=== PATIENT | male | born 1995 | race Two or more races ===

== ENCOUNTER 2021-06-15 14:49 | Emergency (ER) | payer OTHER ==
[~2021-06-15] VITALS: Ht 185.4 cm; Wt 93.0 kg
--- NOTE | 2021-06-15 15:07 | NUR ---
DR NINA AT THE BEDSIDE
--- NOTE | 2021-06-15 15:08 | NUR ---
BIBS FOR C/O L CHEST AREA PAIN 07/04, PAIN TAKING DEEP BREATHS X 1 WEEK. SEEN AT URGENT CARE, FINISHED AMOXICILLIN/ PREDNISONE LAST WEEK. IN ROOM AIR AND DENIES SOB. RESPIRATION REGULAR AND UNLABORED. ATTACHED TO THE MONITOR. WILL CONTINUE TO MONITOR THE PATIENT.
[2021-06-15] MEDS ORDERED: KETOROLAC TROMETHAMINE INJ 30 MG/ML VIAL ONE (15:11)
[2021-06-15] MEDS: KETOROLAC TROMETHAMINE INJ 30 MG/ML VIAL IM ONE (15:15)
--- NOTE | 2021-06-15 15:16 | NUR ---
FLYING INSTRUCTOR AT THE BEDSIDE
[2021-06-15] MEDS ORDERED: IBUP-1957 PO (15:59)
[2021-06-15 16:05] VITALS: BP 133/76
--- NOTE | 2021-06-15 16:05 | NUR ---
Patient discharged to home in stable condition. Written and verbal after care instructions given. Patient verbalizes understanding of instruction.
== END 2021-06-15 16:05 | disposition home or self-care (01) ==
LOC: ER 14:54
DX: R09.1 Pleurisy (principal)
CPT/HCPCS: 71045; 93005; 96372; 99283; J1885

== ENCOUNTER 2023-02-07 16:56 | Emergency (ER) | payer OTHER ==
[~2023-02-07] VITALS: Ht 182.9 cm; Wt 97.5 kg
[~2023-02-07 16:56] MED LIST: IBUP-1957 PO
[2023-02-07 17:13] VITALS: TEMP 98.1
[2023-02-07] MEDS ORDERED: MORPHINE SULFATE INJ 2 MG/ML DISP.SYRIN IV ONE (18:00)
[2023-02-07] MEDS ORDERED: IV NS 0.9% 1,000 ML BAG IV ONE (18:00)
[2023-02-07] MEDS ORDERED: ONDANSETRON HCL/PF 4 MG/2 ML VIAL IVP ONE (18:00)
[2023-02-07] MEDS ORDERED: MORPHINE SULFATE INJ 2 MG/ML DISP.SYRIN ONE (18:10)
[2023-02-07 18:11] LABS: BASOPHILS % (AUTO) 0.8 % (0.0-2.0); EOSINOPHILS # (AUTO) 0.1 K/uL (0.0-0.7); EOSINOPHILS % (AUTO) 1.9 % (0.0-6.0); HEMATOCRIT 47 % (39-51); LYMPHOCYTES # (AUTO) 1.5 K/uL (0.8-4.8); LYMPHOCYTES % (AUTO) 25.9 % (20.0-44.0); MEAN CORPUSCULAR HEMOGLOBIN 30 PG (26.0-33.0); MEAN CORPUSCULAR HGB CONC 34 g/dl (31.0-36.0); MEAN CORPUSCULAR VOLUME 88 fL (80-96); MONOCYTES # (AUTO) 0.3 K/uL (0.1-1.30); MONOCYTES % (AUTO) 5.9 % (2.0-12.0); NEUTROPHILS # (AUTO) 3.7 K/uL (1.8-8.9); NEUTROPHILS % (AUTO) 65.5 % (43.0-81.0); PLATELET COUNT (AUTO) 125 K/uL (150-450); RED BLOOD CELL COUNT(AUTO) 5.35 MIL/uL (4.5-6.0); WHITE BLOOD COUNT (AUTO) 5.7 K/uL (4.3-11.0)
[2023-02-07 18:22] LABS: CALCIUM, SERUM 9.2 mg/dL (8.5-10.1); CARBON DIOXIDE 27 mmol/L (21-32); CHLORIDE 103 mmol/L (98-107); CREATININE 1.1 mg/dL (0.6-1.3); GLUCOSE 85 mg/dL (74-106); POTASSIUM 3.8 mmol/L (3.5-5.1); SODIUM SERUM 139 mmol/L (136-145); UREA NITROGEN, BLOOD 8 mg/dL (7-18)
[2023-02-07 18:28] LABS: ALANINE AMINOTRANSFERASE 29 U/L (12-78); ALBUMIN 4.4 g/dL (3.4-5.0); ALKALINE PHOSPHATASE 81 U/L (46-116); ASPARTATE AMINOTRANSFERASE 20 U/L (15-37); BILIRUBIN,DIRECT 0.1 mg/dL (0.0-0.2); BILIRUBIN,TOTAL 0.6 mg/dL (0.2-1.0); LIPASE 30 U/L (16-77); TOTAL PROTEIN, SERUM 7.6 g/dL (6.4-8.2)
[2023-02-07 19:44] LABS: APPEARANCE,URINE CLEAR (CLEAR); BILIRUBIN,URINE 1+ (NEGATIVE); BLOOD, URINE NEGATIVE Ery/uL (NEGATIVE); COLOR,URINE YELLOW (YELLOW); KETONES,URINE 2+ mg/dL (NEGATIVE); LEUKOCYTE ESTERASE ,URINE NEGATIVE (NEGATIVE); NITRITE, URINE NEGATIVE (NEGATIVE); PH,URINE 6.5 (5.0-8.0); PROTEIN,URINE NEGATIVE (NEGATIVE); UGLUCOSE NEGATIVE (NEGATIVE); UROBILINOGEN,URINE 0.2 EU/dL (0.2)
[2023-02-07] MEDS ORDERED: OMEP40CA21 PO (20:01)
[2023-02-07 20:23] VITALS: BP 140/90; O2SAT 99
[2023-02-07 21:27] LABS: ADD URINE CULTURE NO; BACTERIA,URINE Rare /HPF (None Seen); MUCUS,URINE Many /LPF (None Seen); RBC,URINE 0-2 /HPF (0-2); SQUAMOUS EPITHELIAL CELL,UR Few /HPF (None Seen); WBC,URINE 0-2 /HPF (0-3)
== END 2023-02-07 20:23 | disposition home or self-care (01) ==
LOC: ER 17:02
DX: R10.13 Epigastric pain (principal)
CPT/HCPCS: 99285; 74176; 96374; 96361; 96375; 85025; 80048; 83690; 80076; 81001; 36415; 84484; J2405; J7030; J2270